=== PATIENT | male | born 1945 | race Caucasian/White ===

== ENCOUNTER → 2018-09-02 09:58 | Emergency (ER) | payer MEDICARE ==
[~2018-09-02 09:58] MED LIST: Albuterol/Ipratropium NEB.SOL* Albuterol 2.5 MG/Ipratropium 0.5 MG 3 ML INH ONE; DOXYcycline IV* 100 MG in NS 0.9% 250 ML* 250 ML IVPB ONE; Dexamethasone IV* 4 MG/ML 5 ML VIAL (20 MG) IVPB ONE; Iohexol 350* (CONTRAST) 500 ML MDV IV ONE; NS 0.9% 250 ML* 250 ML ONE
--- NOTE | 2018-09-02 10:18 | ED ---
HPI Chest Pain - HPI Summary HPI Summary: This patient is a 73 year old female presenting to [facility] with a chief complaint of right rib pain since this morning. Patient states that he woke up in the middle of the night with sudden rib pain. The pain is described as sharp and stabbing. The pain is rated 2/10 in severity normally, but 10/10 with a cough. Symptoms alleviated by nothing. Patient states that that he has been fighting a bout of the common cold for the past few days and recently came back from [place]. Patient additionally reports sore throat, SOB, cough. Patient denies rhinorrhea. Patient is on 3L NC at home and has a hx of emphysema. - History of Current Complaint Time Seen by Provider: 09/02/18 10:01 Hx Obtained From: Patient Onset/Duration: Started Hours Ago, Still Present Timing: Constant Current Severity: Moderate Pain Intensity: 2 Pain Scale Used: 0-10 Numeric Chest Pain Location: Right Lateral Character: Sharp/Stabbing Aggravating Factor(s): Other: - cough Alleviating Factor(s): Nothing Associated Signs and Symptoms: Positive: Negative - rhinorrhea, Other: - cough, sore throat, SOB - Allergy/Home Medications Allergies/Adverse Reactions: Allergies Allergy/AdvReac Type Severity Reaction Status Date / Time lactose Allergy GI Upset Verified 09/02/18 10:04 morphine Allergy Vomiting Verified 09/02/18 10:04 Home Medications: Home Medications Azithromycin 250 mg pe PO DAILY WITH MEAL 09/02/18 [History Confirmed 09/02/18] predniSONE TAB* [Deltasone 20 MG TAB*] 20 mg PO DAILY WITH MEAL 09/02/18 [ History Confirmed 09/02/18] PMH/Surg Hx/FS Hx/Imm Hx Previously Healthy: No Cardiovascular History: Reports: Hx Hypertension - on meds Denies: Other Cardiovascular Problems/Disorders Respiratory History: Reports: Hx Sleep Apnea - no cpap yet, Other Respiratory Problems/Disorders - emphysema Musculoskeletal History: Reports: Hx Arthritis - left hand and thumb Sensory History: Reports: Hx Cataracts - [place], Hx Contacts or Glasses - [place], Hx Hearing Aid - [place] Opthamlomology History: Reports: Hx Cataracts - [place], Hx Contacts or Glasses - [place] - Surgical History Surgery Procedure, Year, and Place: [place] cataracts, 2009, [facility] [place]. hernia, 30 yrs ago, [facility] [place]. vasectomy, 1970 Hx Anesthesia Reactions: No Infectious Disease History: No Infectious Disease History: Denies: Traveled Outside the US in Last 30 Days - Family History Known Family History: Positive: Hypertension - Social History Alcohol Use: None Hx Substance Use: No Substance Use Type: Reports: None Hx Tobacco Use: Yes Smoking Status (MU): Former Smoker Amount Used/How Often: 25 years 2 packs a day Review of Systems Negative: Fever Positive: Sore Throat. Negative: Nasal Discharge Positive: Shortness Of Breath, Cough Positive: Other - right rib pain All Other Systems Reviewed And Are Negative: Yes Physical Exam - Summary Physical Exam Summary: Constitutional: Well-developed, Well-nourished, Alert. Mild respiratory distress. Skin: Warm, Dry HENT: Normocephalic; Atraumatic Eyes: Conjunctiva normal Neck: Musculoskeletal ROM normal neck. Cardio: Rhythm regular, rate normal, Heart sounds normal; Difficult to hear due to loud breath sounds. Intact distal pulses; The pedal pulses are 2+ and symmetric. Radial pulses are 2+ and symmetric. Pulmonary/Chest wall: Diffuse bilateral wheezing Abd: Soft, Musculoskeletal: Left lower extremity 2+ pitting edema, Right lower extremity 1 + or trace pitting edema Neuro: Alert, Oriented x3 Psych: Mood and affect Normal Triage Information Reviewed: Yes Vital Signs On Initial Exam: Initial Vitals Temp Pulse Resp BP Pulse Ox 97.7 F 94 24 171/88 95 09/02/18 10:04 09/02/18 10:04 09/02/18 10:04 09/02/18 10:04 09/02/18 10:04 Vital Signs Reviewed: Yes Diagnostics - Vital Signs Vital Signs Temp Pulse Resp BP Pulse Ox 09/02/18 10:04 97.7 F 94 24 171/88 95 - Laboratory Result Diagrams: 09/02/18 10:37 09/02/18 10:37 Lab Statement: Any lab studies that have been ordered have been reviewed, and results considered in the medical decision making process. - Radiology CXR Radiology Interpretation Completed By: Radiologist Summary of Radiographic Findings: CXR reveals, per radiologist, IMPRESSION: POSSIBLE SMALL LEFT PLEURAL EFFUSION. ED physician has reviewed this radiology report. - CT CTA Chest/Thorax CT Interpretation Completed By: Radiologist Summary of CT Findings: CTA Chest/Thorax reveals, per radiologist, IMPRESSION: 1. SLIGHTLY LIMITED STUDY, NO EVIDENCE FOR PULMONARY EMBOLISM. 2. FINDINGS SUGGESTIVE OF ACUTE BRONCHITIS IN THE RIGHT LOWER LOBE. 3. EMPHYSEMA. 4. HEPATIC STEATOSIS. ED physician has reviewed this radiology report. - EKG 1017 Cardiac Rate: NL EKG Rhythm: Sinus Rhythm - 84 BPM Summary of EKG Findings: An EKG, taken 1017, reveals NSR (84 BPM), normal OR, normal QRS, normal QTc, Nonspecific ST, Q wave in lead III. - Additional Comments Diagnostic Additional Comments: Venous Doppler Study reveals, per radiologist, IMPRESSION: NO EVIDENCE FOR DEEP VENOUS THROMBOSIS. ED physician has reviewed this radiology report. Re-Evaluation - Re-Evaluation First Eval Re-Evaluation Time: 10:41 Change: Improved Comment: Patient is feeling better. SOB improved. Second Eval Re-Evaluation Time: 12:54 Change: Unchanged Comment: Patient is breathing much more comfortably. However, he is still wheezing and patient notes that he is normally not wheezing at baseline. SOB still present. Will order 2nd breathing treatment. Chest Pain Course/Dx - Course Course Of Treatment: This patient is a 73 year old female presenting to [facility] with a chief complaint of right rib pain since this morning. Patient states that he woke up in the middle of the night with sudden rib pain. The pain is described as sharp and stabbing. The pain is rated 2/10 in severity normally, but 10/10 with a cough. Patient is on 3L NC at home and has a hx of emphasema. PE reveals diffuse bilateral wheezing with pitting edema in bilateral lower extremities, left more than right. An EKG, taken 1017, reveals NSR (84 BPM), normal OR, normal QRS, normal QTc, Nonspecific ST, Q wave in lead III. CXR reveals, per radiologist, IMPRESSION: POSSIBLE SMALL LEFT PLEURAL EFFUSION. ED physician has reviewed this radiology report. Venous Doppler Study reveals, per radiologist, IMPRESSION: NO EVIDENCE FOR DEEP VENOUS THROMBOSIS. ED physician has reviewed this radiology report. CTA Chest/Thorax reveals, per radiologist, IMPRESSION:1. SLIGHTLY LIMITED STUDY, NO EVIDENCE FOR PULMONARY EMBOLISM. 2. FINDINGS SUGGESTIVE OF ACUTE BRONCHITIS IN THE RIGHT LOWER LOBE. 3. EMPHYSEMA. 4. HEPATIC STEATOSIS. ED physician has reviewed this radiology report. Bloodwork Obtained. Re-eval at 1254: Patient is breathing much more comfortably. However, he is still wheezing and patient notes that he is normally not wheezing at baseline. SOB still present. Will order 2nd breathing treatment. In the ED course the patient was given Albuterol 1 nebulizer, Decadron 10mg IVPB, Doxycyclin, Iohexol 83mL IV. The pt is hemodynamically stable, alert and oriented x3. Patient will be discharged with a dx of acute bronchitis, COPD. Patient is advised to follow up with PCP in 3 days. The patient is agreeable with this plan. - Chest Pain Differential Diagnosis/HQI/PQRI: ACS, CHF, Chest Wall, Pulmonary Edema, Pulmonary Embolism, Other: - DVT, COPD, influenza, pneumonia - Diagnoses Provider Diagnoses: COPD (chronic obstructive pulmonary disease), Bronchitis Discharge - Sign-Out/Discharge Documenting (check all that apply): Patient Departure Patient Received Moderate/Deep Sedation with Procedure: No - Discharge Plan Condition: Stable Disposition: HOME Prescriptions: Tramadol 50 MG # 6 TAB PREPAK 50 mg PO Q4HR PRN #15 tab MDD 6 PRN Reason: Pain Patient Education Materials: Acute Bronchitis (ED), COPD (Chronic Obstructive Pulmonary Disease) (ED) Print Language: [place] Referrals: Trace Monique MD [Primary Care Provider] - - Billing Disposition and Condition Condition: STABLE Disposition: Home - Attestation Statements Document Initiated by Jorgeibe: Yes Documenting Scribe: Franchesca Shannon Provider For Whom Mishel is Documenting (Include Credential): Cindy Palomino MD Scribe Attestation: Franchesca Huizar, scribed for Cindy Carson MD on 09/02/18 at 2144. Scribe Documentation Reviewed: Yes Provider Attestation: The documentation as recorded by the Franchesca downs accurately reflects the service I personally performed and the decisions made by me, Cindy Carson MD Status of Scribmegan Document: Viewed
[2018-09-02 10:45] LABS: ABS Basophils 0 10^3/ul (0-0.2); ABS Eosinophils 0.1 10^3/ul (0-0.6); ABS Lymphocytes 0.6 10^3/ul (1.0-4.8); ABS Monocytes 0.5 10^3/ul (0-0.8); ABS Neutrophils 8.7 10^3/ul (1.5-7.7); ABS Nucleated RBC 0 10^3/ul; Eosinophil % 0.9 %; Hematocrit 47 % (36-46); Hemoglobin 15.7 g/dL (14.0-18.0); Lymphocyte % 6.4 %; Mean Corpuscular HGB Conc 33 g/dL (31-36); Mean Corpuscular Hemoglobin 31 pg (27-31); Mean Corpuscular Volume 91 fL (80-94); Mean Platelet Volume 7.8 fL (7.4-10.4); Nucleated Red Blood Cells % 0; Platelet Count 250 10^3/uL (150-450); Red Blood Count 5.15 10^6 /uL (4.18-5.48); Red Cell Distribution Width 15 % (10.5-15)
[2018-09-02 10:51] LABS: INR 0.91 (0.77-1.02)
[2018-09-02 11:05] LABS: Albumin 4.3 g/dL (3.2-5.2); Albumin/Globulin Ratio 1.3 (1-3); BUN/Creatinine Ratio 13.2 (8-20); Calcium 9.6 mg/dL (8.6-10.3); EGFR African American 82.4 (>60); EGFR Non-African American 68.1 (>60); Globulin 3.3 g/dL (2-4); Total Bilirubin 0.4 mg/dL (0.2-1.0); Total Protein 7.6 g/dL (6.4-8.9)
[2018-09-02 13:48] LABS: Influenza A Molecular NEGATIVE (Negative); Influenza B Molecular NEGATIVE (Negative)
[2018-09-02 18:25] VITALS: BP 116/61
== END | disposition home or self-care (01) ==
LOC: ED 09:58
DX: J44.9 Chronic obstructive pulmonary disease, unspecified (principal); K76.0 Fatty (change of) liver, not elsewhere classified; I10 Essential (primary) hypertension; G47.30 Sleep apnea, unspecified; Z88.5 Allergy status to narcotic agent; Z79.899 Other long term (current) drug therapy; Z87.891 Personal history of nicotine dependence
CPT/HCPCS: 36415; 71045; 71275; 80053; 82803; 83605; 83880; 84484; 85025; 85610; 87040; 93005; 96365; 96366; 96375; 99284; A9270-GY; J1100; Q9967

== ENCOUNTER 2018-10-21 09:29 | Inpatient (IN) | payer MEDICARE ==
[2018-10-21] MEDS ORDERED: NS 0.9% 1000 ML** 1,000 ML IV ONE (09:44)
[2018-10-21] MEDS ORDERED: methylPREDNISolone 125 MG* 2 ML VIAL IV ONE (09:44)
--- NOTE | 2018-10-21 09:44 | ED ---
Shortness of Breath - HPI Summary HPI Summary: This pt is a 73 y/o male presenting to [facility] c/o worsening SOB. Pt reports he is SOB on minimal exertion. He states he will get SOB just by ambulating to the bathroom. Pt notes he has a cough that is nonproductive but he feels like he has phlegm and does not have the strength to bring it up. Denies chest pain, fever. PMHx significant for COPD, emphysema. He uses 3L of oxygen at home at baseline. - History of Current Complaint Chief Complaint: EDShortnessOfBreath Time Seen by Provider: 10/21/18 09:41 Hx Obtained From: Patient Onset/Duration: Gradual Onset, Lasting Days, Still Present Timing: Constant Current Severity: Moderate Dyspnea At: Rest Aggrevating Factors: Movement Alleviating Factors: Nothing Associated Signs & Symptoms: Cough (Nonproductive) - Allergy/Home Medications Allergies/Adverse Reactions: Allergies Allergy/AdvReac Type Severity Reaction Status Date / Time lactose Allergy GI Upset Verified 10/21/18 10:29 morphine Allergy Vomiting Verified 10/21/18 10:29 Home Medications: Home Medications Tiotropium Brom/Olodaterol(NF) [Stiolto Respimat Inh [place] (60 puff)(NF)] 1 puff INH BID 10/21/18 [History Confirmed 10/21/18] PMH/Surg Hx/FS Hx/Imm Hx Endocrine/Hematology History: Denies: Hx Diabetes Cardiovascular History: Reports: Hx Hypertension - on meds Denies: Other Cardiovascular Problems/Disorders Respiratory History: Reports: Hx Chronic Obstructive Pulmonary Disease (COPD) - Emphysema+ Home O2, Hx Sleep Apnea - no cpap yet, Other Respiratory Problems/ Disorders - emphysema Denies: Hx Asthma History: Denies: Hx Renal Disease Musculoskeletal History: Reports: Hx Arthritis - left hand and thumb Sensory History: Reports: [place] - [place], Hx Contacts or Glasses - [place], Hx Hearing Aid - [place] Opthamlomology History: Reports: H[place] Cataracts - [place], Hx Contacts or Glasses - [place] - Surgical History Surgery Procedure, Year, and Place: [place] cataracts, 2009, [facility] [place]. hernia, 30 yrs ago, [facility] [place]. vasectomy, 1970 Hx Anesthesia Reactions: No Infectious Disease History: No Infectious Disease History: Denies: Traveled Outside the US in Last 30 Days - Family History Known Family History: Positive: Hypertension - Social History Alcohol Use: None Hx Substance Use: No Substance Use Type: Reports: None Hx Tobacco Use: Yes Smoking Status (MU): Former Smoker Amount Used/How Often: 25 years 2 packs a day Review of Systems Negative: Fever Negative: Chest Pain Positive: Shortness Of Breath, Cough All Other Systems Reviewed And Are Negative: Yes Physical Exam - Summary Physical Exam Summary: VITAL SIGNS: Reviewed. GENERAL: Patient is a well-developed and nourished male who is lying comfortable in the stretcher. Patient is not in any acute respiratory distress. HEAD AND FACE: No signs of trauma. No ecchymosis, hematomas or skull depressions. No sinus tenderness. EYES: PERRLA, EOMI x 2, No injected conjunctiva, no nystagmus. EARS: Hearing grossly intact. Ear canals and tympanic membranes are within normal limits. MOUTH: Oropharynx within normal limits. NECK: Supple, trachea is midline, no adenopathy, no JVD, no carotid bruit, no c- spine tenderness, neck with full ROM. CHEST: Symmetric, no tenderness at palpation LUNGS: Decreased breath sounds bilaterally. CVS: Regular rate and rhythm, S1 and S2 present, no murmurs or gallops appreciated. ABDOMEN: Soft, non-tender. No signs of distention. No rebound no guarding, and no masses palpated. Bowel sounds are normal. EXTREMITIES: FROM in all major joints, no edema, no cyanosis or clubbing. NEURO: Alert and oriented x 3. No acute neurological deficits. Speech is normal and follows commands. SKIN: Dry and warm Triage Information Reviewed: Yes Vital Signs On Initial Exam: Initial Vitals Temp Pulse Resp BP Pulse Ox 98.6 F 105 22 154/69 91 10/21/18 09:30 10/21/18 09:30 10/21/18 09:30 10/21/18 09:30 10/21/18 09:30 Vital Signs Reviewed: Yes Diagnostics - Vital Signs Vital Signs Temp Pulse Resp BP Pulse Ox 10/21/18 09:30 98.6 F 105 22 154/69 91 - Laboratory Result Diagrams: 10/21/18 10:06 10/21/18 10:06 Lab Statement: Any lab studies that have been ordered have been reviewed, and results considered in the medical decision making process. - Radiology Chest XR Radiology Interpretation Completed By: Radiologist Summary of Radiographic Findings: IMPRESSION: In the correct clinical setting chest x-ray findings could be associated with a mild degree of pulmonary edema and/or atelectasis of the lower lungs. Dr. Ackerman has reviewed this report. - EKG 10:20 Cardiac Rate: NL - at 95 bpm EKG Rhythm: Sinus Rhythm EKG Comparison: No Significant Change - similar to prior EKG on 09/02/18. Summary of EKG Findings: No ST elevations. Q wave in lead III. Course/Dx - Course Assessment/Plan: This pt is a 73 y/o male presenting to [facility] c/o worsening SOB. Pt reports he is SOB on minimal exertion. He states he will get SOB just by ambulating to the bathroom. Pt notes he has a cough that is non productive but he feels like he has phlegm and does not have the strength to bring it up. Denies chest pain, fever. PMHx significant for COPD, emphysema. He uses 3L of oxygen at home at baseline. Blood work without any significant abnormality except for glucose of 106, and CRP of 18.32. Chest x-ray impression: In the correct clinical setting chest x-ray findings could be associated with a mild degree of pulmonary edema and/or atelectasis of the lower lungs. ABG shows a pH of 7.39, PCO2 is 40 perform a PO2 is 75 and O2 sat is 97. On ambulation the patient desaturates to about 86-88% even with his normal oxygen of 3 L via nasal cannula. Therefore, I discussed my physical exam, findings and test results with Dr. Luna from the hospitalist services and she agrees to admit patient to her services. Patient is hemodynamically stable, alert and oriented x 3. - Diagnoses Provider Diagnoses: COPD exacerbation - Physician Notifications Discussed Care of Patient With: Elmira Luna - hospitalist Time Discussed With Above Provider: 12:32 Instructed by Provider To: Admit As Inpatient Discharge - Sign-Out/Discharge Documenting (check all that apply): Patient Departure - Admit to [facility] Patient Received Moderate/Deep Sedation with Procedure: No - Discharge Plan Condition: Stable Disposition: ADMITTED TO [facility] - Billing Disposition and Condition Condition: STABLE Disposition: Admitted to [facility] - Attestation Statements Document Initiated by Scribe: Yes Documenting Scribe: Dalila Pena Provider For Whom Scribe is Documenting (Include Credential): Jewel Ackerman MD Scribe Attestation: I, Dalila Pena, scribed for Jewel Ackerman MD on 10/22/18 at 1828. Scribe Documentation Reviewed: Yes Provider Attestation: The documentation as recorded by the scribe, Dalila Pena accurately reflects the service I personally performed and the decisions made by me, Jewel Ackerman MD Status of Scribe Document: Viewed
[2018-10-21] MEDS: Albuterol/Ipratropium NEB.SOL* Albuterol 2.5 MG/Ipratropium 0.5 MG 3 ML INH SCH ×3 (10:12→10:42)
[2018-10-21 10:26] LABS: ABS Eosinophils 0.4 10^3/ul (0-0.6); ABS Lymphocytes 0.8 10^3/ul (1.0-4.8); ABS Monocytes 0.7 10^3/ul (0-0.8); ABS Neutrophils 7.8 10^3/ul (1.5-7.7); Eosinophil % 4.2 %; Hematocrit 44 % (42-52); Hemoglobin 14.8 g/dL (14.0-18.0); Mean Corpuscular HGB Conc 33 g/dL (31-36); Mean Corpuscular Hemoglobin 31 pg (27-31); Mean Corpuscular Volume 92 fL (80-94); Mean Platelet Volume 7.5 fL (7.4-10.4); Platelet Count 243 10^3/uL (150-450); Red Blood Count 4.84 10^6 /uL (4.18-5.48); Red Cell Distribution Width 15 % (10.5-15); White Blood Count 9.7 10^3/uL (3.5-10.8)
[2018-10-21 10:29] LABS: Activated Partial Thrombo Time 36.3 seconds (26.0-38.0); INR 1.09 (0.82-1.09)
[2018-10-21 10:43] LABS: Albumin 4.1 g/dL (3.2-5.2); Albumin/Globulin Ratio 1.3 (1-3); BUN/Creatinine Ratio 10.5 (8-20); C Reactive Protein 18.32 mg/L (<8.01); Calcium 9.2 mg/dL (8.6-10.3); EGFR African American 83.3 (>60); EGFR Non-African American 68.9 (>60); Globulin 3.1 g/dL (2-4); Potassium 3.8 mmol/L (3.5-5.0); Total Bilirubin 0.5 mg/dL (0.2-1.0); Total Protein 7.2 g/dL (6.4-8.9)
[2018-10-21 10:47] LABS: CKMB ng/mL 3.7 ng/mL (0.6-6.3)
[2018-10-21] MEDS ORDERED: Acetaminophen TAB* 325 MG PO PRN (14:16)
[2018-10-21] MEDS ORDERED: Albuterol HFA INHALER* 8 gm MDI INH PRN (14:19)
[2018-10-21] MEDS ORDERED: Benzonatate CAP* 100 MG PO PRN (14:25)
[2018-10-21] MEDS ORDERED: Melatonin 3 MG TAB PO PRN (14:25)
[2018-10-21] MEDS: Enoxaparin(*) 40 MG/0.4 ML SYR SUBCUT SCH (15:00)
[2018-10-21] MEDS: Azithromycin 500 mg/250 ml NS 500 MG/250 ML BAG IVPB SCH (15:00)
--- NOTE | 2018-10-21 17:21 | HP ---
CC: Dr. Monique * HISTORY AND PHYSICAL: DATE OF ADMISSION: 10/21/18 PROVIDER: Jazmín Sanabria NP. PRIMARY CARE PROVIDER: Dr. Monique. ATTENDING PHYSICIAN WHILE IN THE HOSPITAL: Dr. Elmira Forbes * (dictated by Jazmín Sanabria NP). CHIEF COMPLAINT: Cough, shortness of breath. HISTORY OF PRESENT ILLNESS: Mr. Esteban is a 73-year-old male with a past medical history significant for COPD, GERD, history of gout, hypertension, hyperlipidemia, insomnia, obstructive sleep apnea, who initially presented to his primary care office today with cough and shortness of breath. He was seen and evaluated by his primary care and recommended to come to the emergency room due to his progressively worsening shortness of breath and increased cough. The patient reports that he had bronchitis in August , at that time he was placed on prednisone and azithromycin. He reports that he continues to have the cough and feels short of breath. He reports that the shortness of breath has become progressively worse over the past 2 months to the point that it is difficult for him to participate in his daily activities. He does report that he develops excessive coughing to the point it is hard for him to breathe. He stated that he had an appointment with asset management coordinator in August. He had to cancel the appointment as he was too sick to make the appointment with bronchitis. He reports that his coughing spells are becoming more severe and the shortness of breath is becoming more severe. He reports that at home, his walking O2 saturation does drop into the 80s and feels that has been occurring for sometime now. He does report he chronically wears a 3 L nasal cannula at home. He was placed on oxygen in April of last year when he was in [place] due to his shortness of breath. While in the emergency room, the patient had routine lab work drawn, which was essentially within normal limits. The patient is afebrile. He did have a walking O2 saturation on 3 L in the emergency room, his O2 saturation dropped to 82% and he was significantly short of breath. Due to these findings, we were asked to see and evaluate him for admission. PAST MEDICAL HISTORY: Significant for: 1. COPD. 2. Hypertension. 3. Hyperlipidemia. 4. Obstructive sleep apnea, wears CPAP at night. 5. History of gout. 6. GERD. 7. Insomnia. PAST SURGICAL HISTORY: Umbilical hernia repair. HOME MEDICATIONS: Include: 1. Albuterol HFA 108 two puffs every 4 hours as needed for shortness of breath. 2. Allopurinol 300 mg p.o. daily. 3. Amlodipine 1 tablet p.o. daily. 4. Aspirin 81 mg p.o. daily. 5. Omeprazole 20 mg p.o. daily. 6. Simvastatin 20 mg p.o. daily. 7. Stiolto 2.5 -2.5 two puffs inhaled daily. ALLERGIES: COLCHICINE, DAIRY and MORPHINE. SOCIAL HISTORY: The patient reports he quit smoking 25 to 30 years ago. Prior to that, he smoked 2 packs a day for approximately 30 years. Denies any alcohol or illicit drug use. He is . He lives with his . Surrogate decision maker in the event he is unable to make his own decisions is his . He is a full code. REVIEW OF SYSTEMS: He denies an fever or unintended weight loss. Denies any weight gain. Denies any chest pain or edema. He does report progressively worsening cough and shortness of breath. He reports the cough is nonproductive. He denies any nausea, vomiting, diarrhea, or abdominal pain, hematuria, dysuria. Denies any focal weakness or sensory loss. Denies any visual complaints, dysphagia, arthralgias, myalgias, rashes, lesions or open sores. Denies any psychosis or anxiety. PHYSICAL EXAMINATION GENERAL: At this time, Mr. Esteban is a 73-year-old male. He is alert and oriented, resting on the stretcher in the emergency room. He appears well developed, well nourished. He is in no acute distress at this time. VITAL SIGNS: Blood pressure 140/66, heart rate 108, respirations are 27, O2 saturations 92%, temperature was 98.6. HEENT: Head is atraumatic, normocephalic. Eyes: EOMS are intact. Sclerae anicteric and not pale. Oral mucosa appeared to be moist. NECK: Supple. LUNGS: Diminished throughout bilaterally with a few scattered expiratory wheezes. ABDOMEN: Obese, soft and nontender. Bowel sounds are present x4. EXTREMITIES: He is able to move all 4 extremities. There is no clubbing or cyanosis. Radial pulses are +2. Pedal pulses are +2. He does have mild 1+ pitting edema to lower extremities. SKIN: Intact. NEUROLOGIC: He is awake, alert, and oriented x3. Speech is clear. Thought process intact. There is no gross focal deficits. DIAGNOSTIC STUDIES/LAB DATA: WBCs are 9.7, RBCs 4.84, hemoglobin 14.8, hematocrit is 44, platelet count is 243. INR is 1.09. ABG; pH was 7.39, pCO2 was 40, pO2 was 75, HCO3 is 24.3, O2 saturation was 97% on 4 L. Sodium 140, potassium 3.8, chloride 107, carbon dioxide is 28, anion gap is 5, BUN was 11, creatinine 1.005, glucose is 106, lactic acid 1.5. ASTs were 20, ALTs were 18, alkaline phosphatase was 82. CK was 3.7. Troponin was 0.00. C-reactive protein was 18.32. BNP was 24. He had a chest x-ray, radiologist's impression: In the correct clinical setting , the findings could be associated with mild degree of pulmonary edema and/or atelectasis in the lower lungs. He had an electrocardiogram which showed sinus rhythm at a rate of 95. ASSESSMENT AND PLAN: Mr. Esteban is a 73-year-old male with past medical history significant for chronic obstructive pulmonary disease, hypertension, hyperlipidemia, obstructive sleep apnea, history of gout, and gastroesophageal reflux disease who presented with progressively worsening shortness of breath and cough. 1. He will be admitted under observation for acute on chronic hypoxic respiratory failure. The patient is chronically on 3L nasal cannula. He desats with ambulation to 82%. I will place him on albuterol and Atrovent nebulizers q. 4 hours as needed for shortness of breath and wheezing. We will continue his home inhalers as previously prescribed. He did receive Solu-Medrol 125 mg in the emergency room. I will continue him on prednisone 40 mg p.o. daily. I will add azithromycin 500 mg IV. I will add Mucinex and Tessalon Perles as needed for the cough. 2. Hypertension. He will continue on his amlodipine as previously prescribed. 3. Hyperlipidemia. He will continue on simvastatin as previously prescribed. 4. Obstructive sleep apnea. The patient is on CPAP. He will continue his CPAP during this hospitalization. 5. Gastroesophageal reflux disease. He will continue on omeprazole as previously prescribed. 6. History of gout. The patient will continue on allopurinol 300 mg p.o. daily. 7. DVT prophylaxis. He will be placed on Lovenox subcu. 8. Code status: He is a full code. 9. Fluid, electrolytes and nutrition: He can have a heart healthy, caffeine okay diet. TIME SPENT: Time spent on this admission was approximately 60 minutes, greater than half that time was spent at the bedside, reviewing events leading thus far to his hospitalization, performing physical exam, and reviewing my plan of care. I have discussed this with my attending Dr. Elmira Forbes; she is in agreement with my plan. JAZMÍN SANABRIA, THAIS [id number]/[facility] #: [id number] LUCAS
[2018-10-21] MEDS ORDERED: Atorvastatin* 10 MG TAB PO SCH (18:00)
[2018-10-21] MEDS: TIOTROPIUM INH SCH (19:32)
[2018-10-21] MEDS: OLODATEROL INH SCH (19:32)
[2018-10-21] MEDS: Albuterol/Ipratropium NEB.SOL* Albuterol 2.5 MG/Ipratropium 0.5 MG 3 ML INH PRN (19:38)
[2018-10-21] MEDS: guaiFENesin ER TAB 600 MG PO SCH (21:23)
[2018-10-22 00:01] LABS: Urine Appearance Clear; Urine Bilirubin Negative (Negative); Urine Blood Negative (Negative); Urine Color Yellow; Urine Glucose Negative (Negative); Urine Ketones Trace (Negative); Urine Nitrite Negative (Negative); Urine Protein Negative (Negative); Urine Urobilinogen Negative (Negative)
[2018-10-22] MEDS: Albuterol/Ipratropium NEB.SOL* Albuterol 2.5 MG/Ipratropium 0.5 MG 3 ML INH PRN ×3 (00:48→19:39)
[2018-10-22] MEDS ORDERED: Furosemide IV* 10 MG/ML VIAL (40 MG) IV ONE ×2 (00:48→16:02)
[2018-10-22] MEDS: OLODATEROL INH SCH ×2 (08:37→19:42)
[2018-10-22] MEDS: TIOTROPIUM INH SCH ×2 (08:37→19:42)
[2018-10-22] MEDS: amLODIPine TAB* 5 MG PO SCH (08:46)
[2018-10-22] MEDS: guaiFENesin ER TAB 600 MG PO SCH ×2 (08:47→21:35)
[2018-10-22] MEDS: Allopurinol TAB* 300 MG PO SCH (08:47)
[2018-10-22] MEDS: Pantoprazole TAB * 40 MG TAB PO SCH (08:48)
[2018-10-22] MEDS: Aspirin EC TAB* 81 MG TAB.EC PO SCH (08:48)
[2018-10-22] MEDS ORDERED: predniSONE TAB* 20 MG PO SCH (09:00)
--- NOTE | 2018-10-22 14:02 | ECHO ---
*[facility]* [place] [address] Fax #: [phone] Transthoracic Echocardiogram Patient: Carlito, Height: 67 in / Guy L 170.2 cm : 1945 Weight: 241.5 lb / Study Date: 10/22/2018 109.8 kg Age: 73 BP: 156 / 67 Gender: M BMI/BSA: 37.9 kg/m^2 HR: 98 bpm / 2.19 m^2 *Electron Beam Welder: * Bisi Newberry [facility] *Referring Physician: * Jazmín Sanabria *Reading Physician: * Chandler Art MD Indications: SOB. History: Chronic obstructive pulmonary disease. Functional status: Following treatment plan for sleep apnea. Risk factors: Hypertension. Hyperlipidemia. Conclusions Summary: 1. Left ventricle: The cavity size is normal. Wall thickness is mildly increased. Systolic function is normal by visual assessment. The estimated ejection fraction is 60-65%. Doppler parameters are consistent with abnormal left ventricular relaxation (grade 1 diastolic dysfunction). 2. Right ventricle: The cavity size is mildly dilated. Wall thickness is mildly increased. Systolic function is low normal. 3. Left atrium: The atrium is mildly dilated. 4. Right atrium: The atrium is moderately dilated. Study data: Transthoracic echocardiogram. Procedure: Transthoracic echocardiography was performed. Complete 2D, spectral Doppler, and color flow Doppler. Location: Bedside. Patient status: Inpatient. Patient room number: 408. No prior study is available for comparison. Rhythm: Normal sinus rhythm with PAC's. Findings Left ventricle: The cavity size is normal. Wall thickness is mildly increased. Systolic function is normal by visual assessment. The estimated ejection fraction is 60-65%. Wall motion is normal; there are no regional wall motion abnormalities. Doppler parameters are consistent with abnormal left ventricular relaxation (grade 1 diastolic dysfunction). Right ventricle: The cavity size is mildly dilated. Wall thickness is mildly increased. The moderator band is in a normal position and normal-sized. Systolic function is low normal. Left atrium: The atrium is mildly dilated. Right atrium: The atrium is moderately dilated. Mitral valve: The leaflets are mildly thickened. There is no evidence of stenosis. There is trace to mild regurgitation. Aortic valve: The valve is trileaflet. The leaflets are mildly thickened. There is no evidence of stenosis. There is no significant regurgitation. Tricuspid valve: The leaflets are normal thickness. There is no evidence of stenosis. There is physiologic regurgitation. Pulmonic valve: Not well visualized. The leaflets are normal thickness. There is no evidence of stenosis. There is trace regurgitation. Aorta: Ascending aorta: The ascending aorta is appears normal. Aortic arch: The aortic arch is appears normal. The aortic root is not dilated. Pericardium: A prominent pericardial fat pad is present. There is no significant pericardial effusion. Pulmonary arteries: Not well visualized. Systolic pressure can not be accurately estimated. Systemic veins: Inferior vena cava: The vessel is normal in size. The respirophasic diameter changes are in the normal range (>= 50%). Measurements Left ventricle Value Ref Right atrium Value Ref CANDELARIO, LAX 4.8 cm 4.2 - 5.8 SI dim, ES (H) 6.1 cm 3.4 - 5.3 ESD, LAX 3.2 cm 2.5 - 4.0 ML dim, ES, A4C (H) 5.1 cm 2.6 - 4.4 FS, LAX 35 % 25 - 43 SI dim, ES, A4C (H) 5.7 cm 3.4 - 5.3 PW, ED, LAX (H) 1.1 cm 0.6 - 1.0 Estimated RAP 3 mm Hg --------- FS 35 % 25 - 43 PW, ED (H) 1.1 cm 0.6 - 1.0 Aortic valve Value Ref E', lat marcelo, TDI (L) 7.6 cm/sec >=10.0 Marcelo diam, ED 2.2 cm --- ------ E/e', lat marcelo, 16 Peak v, S 1.59 m/sec ------ --- TDI VTI, S 26.8 cm --------- E', med marcelo, TDI 8.1 cm/sec >=7.0 Mean grad, S 4.0 mm Hg --- ------ E/e', med marcelo, 15 Peak grad, S 10.0 mm Hg ------ --- TDI LVOT/AV, VTI ratio 0.78 --------- E', avg, TDI 7.9 cm/sec E/e', avg, TDI (H) 15 <=14 Mitral valve Value Ref Peak E 1.18 m/sec --------- LVOT Value Ref Peak A 1.12 m/sec --------- Peak tera, S 1.28 m/sec Decel time 169 ms --------- VTI, S 21.0 cm Peak grad, D 5.6 mm Hg --------- Peak grad, S 7 mm Hg Peak E/A ratio 1.1 --------- Mean grad, S 3 mm Hg Pulmonic valve Value Ref Ventricular septum Value Ref Peak v, S 1.22 m/sec --------- IVS, ED (H) 1.2 cm 0.6 - 1.0 Peak grad, S 6.0 mm Hg --------- Right ventricle Value Ref Aortic root Value Ref AW thickness, ED (H) 0.6 cm 0.1 - 0.5 Root diam 3.3 cm <4.3 CANDELARIO, LAX 3.2 cm CANDELARIO minor ax, (H) 4.8 cm 1.9 - 3.5 Ascending aorta Value Ref A4C mid AAo AP diam, S 3.3 cm --------- Left atrium Value Ref Decending aorta Value Ref AP dim, ES (H) 5.00 cm 3.00 - Shilo peak tera 0.7 m/sec --------- 4.00 ML dim, A4C 4.9 cm Inferior vena cava Value Ref SI dim, A4C 5.7 cm Diam 1.7 cm --------- Vol/bsa, ES, 1-p 32 ml/m^2 12 - 37 A4C Vol/bsa, ES, A/L 30 ml/m^2 16 - 34 Legend: (L) and (H) fabiano values outside specified reference range. Prepared and electronically signed by Chandler Art MD 10/22/2018 14:01
[2018-10-22] MEDS: Azithromycin 500 mg/250 ml NS 500 MG/250 ML BAG IVPB SCH (15:29)
[2018-10-22] MEDS: Enoxaparin(*) 40 MG/0.4 ML SYR SUBCUT SCH (15:29)
--- NOTE | 2018-10-22 15:49 | PN ---
Subjective Date of Service: 10/22/18 Interval History: Patient seen and examined. Currently on his nasal CPAP in his room, at bedside. States he still feels significant;y SOB and wheezy. Denies chest pain, no fever or chills, unable to expectorate. Dry cough. Severe dyspnea with exertion. Objective Active Medications: Acetaminophen (Tylenol Tab*) 650 mg PO Q4H PRN PRN Reason: FEVER/PAIN Albuterol (Ventolin Hfa Inhaler*) 2 puff INH Q4HR PRN PRN Reason: WHEEZING Albuterol/Ipratropium (Duoneb (Albuterol 2.5 Mg/Ipratropium 0.5 Mg)) 1 neb INH [id number] AWAKE PRN PRN Reason: sob/wheexing Last Admin: 10/22/18 09:16 Dose: 1 neb [facility]*) [facility] [place] [facility] Last Admin: 10/22/18 08:47 Dose: 300 mg Amlodipine Besylate ([facility]vasc [facility]*) [facility] [place] Last Admin: 10/22/18 08:46 Dose: 5 mg Aspirin (Aspirin Ec Tab*) 81 mg PO DAILY [facility] Last Admin: 10/22/18 08:48 Dose: 81 mg Atorvastatin Calcium (Lipitor*) 10 mg PO BEDTIME [facility] Benzonatate (Tessalon Cap*) 100 mg PO BID PRN PRN Reason: COUGH Last Admin: 10/22/18 00:45 Dose: 100 mg Enoxaparin Sodium (Lovenox(*)) 40 mg SUBCUT Q24H [facility] Last Admin: 10/22/18 15:29 Dose: 40 mg Guaifenesin (Mucinex*) 600 mg PO BID [facility] Last Admin: 10/22/18 08:47 Dose: 600 mg Azithromycin (Zithromax 500 Mg/250 Ml) 500 mg in 250 mls @ 250 mls/hr IVPB Q24H [facility] Last Admin: 10/22/18 15:29 Dose: 250 mls/hr Melatonin (Melatonin) 3 mg PO BEDTIME PRN PRN Reason: SLEEP Methylprednisolone Sodium Succinate (Solu-Medrol 40 Mg) 40 mg IV Q8H [facility] Pantoprazole Sodium (Protonix Tab*) 40 mg PO QAM [facility] Last Admin: 10/22/18 08:48 Dose: 40 mg Tiotropium [place]/Olodaterol (Stiolto Respimat Inh [place] (60 Puff)(Nf)) 1 puff INH BID [facility] Last Admin: 10/22/18 08:37 Dose: Not Given Vital Signs - 8 hr 10/22/18 10/22/18 09:17 11:23 Temperature 97.7 F Pulse Rate 98 98 Respiratory 16 20 Rate Blood Pressure 133/73 (mmHg) O2 Sat by Pulse 93 98 Oximetry Oxygen Devices in Use Now: Nasal Cannula Appearance: alert, NAD Eyes: No Scleral Icterus, PERRLA Ears/Nose/Mouth/Throat: NL Teeth, Lips, Gums, Mucous Membranes Moist Neck: NL Appearance and Movements; NL JVP, Trachea Midline Respiratory: Symmetrical Chest Expansion and Respiratory Effort, - - bilateral expiratory wheeze with crackles in RLL Cardiovascular: NL Sounds; No Murmurs; No JVD, RRR, No Edema Abdominal: NL Sounds; No Tenderness; No Distention Extremities: No Edema, No Clubbing, Cyanosis Skin: No Rash or Ulcers Neurological: Alert and Oriented x 3, NL Gait Nutrition: Taking PO's - Result Diagrams: 10/21/18 10:06 10/21/18 10:06 Microbiology and Other Data: Microbiology 10/21/18 10:34 Aerobic Blood Culture - Preliminary Blood Venous No Growth Day 1 10/21/18 10:06 Aerobic Blood Culture - Preliminary Blood Venous No Growth Day 1 Anaerobic Blood Culture - Preliminary No Growth Day 1 Diagnostic Imaging: Patient Name: GUY DERAS Medical Record#: [id number] Ordering Physician: Jewel Ackerman MD Acct.#: [id number] : 1945 Age: 73 Sex: M Location: EMERGENCY DEPARTMENT Exam Date: 10/21/18944 ADM Status: REG ER Order Information: CHEST AP OR PORT Accession Number: [id number] CPT: 30964 INDICATION: Shortness of breath. COMPARISON: Chest x-ray dated September 02, 2018 TECHNIQUE: Single AP portable view of the chest was obtained. FINDINGS: Image quality is compromised due to the relative inferiority of a portable chest x-ray. The heart and mediastinum exhibit normal size and contour. The pulmonary vasculature appears mildly engorged and indistinct. There is faint densities at the bilateral lung bases but the costophrenic angles are adequately defined. Visualized bones are normal for the patient's age. IMPRESSION: In the correct clinical setting chest x-ray findings could be associated with a mild degree of pulmonary edema and/or atelectasis of the lower lungs. _*[facility]* [place] [address] Fax #: [phone] Transthoracic Echocardiogram Patient: Carlito, Height: 67 in / Guy L 170.2 cm : 1945 Weight: 241.5 lb / Study Date: 10/22/2018 109.8 kg Age: 73 BP: 156 / 67 Gender: M BMI/BSA: 37.9 kg/m^2 HR: 98 bpm / 2.19 m^2 *Customer Expert: * Bisi Newberry [facility] *Referring Physician: * Jazmín Sanabria *Reading Physician: * Chandler Art MD Indications: SOB. History: Chronic obstructive pulmonary disease. Functional status: Following treatment plan for sleep apnea. Risk factors: Hypertension. Hyperlipidemia. Conclusions Summary: 1. Left ventricle: The cavity size is normal. Wall thickness is mildly increased. Systolic function is normal by visual assessment. The estimated ejection fraction is 60-65%. Doppler parameters are consistent with abnormal left ventricular relaxation (grade 1 diastolic dysfunction). 2. Right ventricle: The cavity size is mildly dilated. Wall thickness is mildly increased. Systolic function is low normal. 3. Left atrium: The atrium is mildly dilated. 4. Right atrium: The atrium is moderately dilated. Assess/Plan/Problems-Billing Assessment: This is a 73 year old male with history of chronic hypoxic respiratory failure on 3L NC continuous, COPD, obesity, YAMILKA on CPAP, HTN that prsented to the ER with complaints of SOB and increased hypoxia. - Patient Problems (1) COPD with exacerbation Code(s): J44.1 - CHRONIC OBSTRUCTIVE PULMONARY DISEASE W (ACUTE) EXACERBATION SNOMED Code(s): 438555506 Comment: - Reports bronchitis in August that never really resolved - Continue azithromycin for antiinflamtory properties, duonebs, inhalers - Change to IV solumedrol, lungs are tight and wheezy today (2) Acute on chronic respiratory failure with hypoxia Code(s): J96.21 - ACUTE AND CHRONIC RESPIRATORY FAILURE WITH HYPOXIA SNOMED Code(s): 71978115 Comment: - 3L NC continuous at home, currently needing 5L - Will wean as tolerated - Goals sats >90% (3) Acute diastolic heart failure Code(s): I50.31 - ACUTE DIASTOLIC (CONGESTIVE) HEART FAILURE SNOMED Code(s): 341222638 Comment: - One dose lasix given last night - CXR with interstitial edema and ECHO with diastolic dysfunction, preserved EF of 60-65% - Will give additional dose lasix now - Strict I&Os, daily weights - Likely etiology is poor pulmonary function, no previous hx of heart failure (4) Hyperlipemia Code(s): E78.5 - HYPERLIPIDEMIA, UNSPECIFIED SNOMED Code(s): 90840700 Comment: - On statin (5) GERD (gastroesophageal reflux disease) Code(s): K21.9 - GASTRO-ESOPHAGEAL REFLUX DISEASE WITHOUT ESOPHAGITIS SNOMED Code(s): 383506465 Comment: - On PPI (6) YAMILKA on CPAP Code(s): G47.33 - OBSTRUCTIVE SLEEP APNEA (ADULT) (PEDIATRIC); Z99.89 - DEPENDENCE ON OTHER ENABLING MACHINES AND DEVICES SNOMED Code(s): 62801348 Comment: - Continue home CPAP (7) DVT prophylaxis Code(s): Z29.9 - ENCOUNTER FOR PROPHYLACTIC MEASURES, UNSPECIFIED SNOMED Code( s): 028516167 Comment: - HSQ Status and Disposition: Inpatient, dispo TBD, 2-3 days IV steroids then home.
[2018-10-22] MEDS: methylPREDNISolone SOD 40 MG* 1 ML VIAL IV SCH ×2 (16:56→23:36)
[2018-10-22] MEDS: Atorvastatin* 10 MG TAB PO SCH (21:34)
[2018-10-23] MEDS: methylPREDNISolone SOD 40 MG* 1 ML VIAL IV SCH ×3 (08:00→22:08)
[2018-10-23] MEDS: amLODIPine TAB* 5 MG PO SCH (08:01)
[2018-10-23] MEDS: Pantoprazole TAB * 40 MG TAB PO SCH (08:01)
[2018-10-23] MEDS: guaiFENesin ER TAB 600 MG PO SCH ×2 (08:02→21:57)
[2018-10-23] MEDS: Allopurinol TAB* 300 MG PO SCH (08:02)
[2018-10-23] MEDS: Aspirin EC TAB* 81 MG TAB.EC PO SCH (08:02)
[2018-10-23] MEDS: TIOTROPIUM INH SCH ×2 (09:14→19:20)
[2018-10-23] MEDS: OLODATEROL INH SCH ×2 (09:14→19:20)
[2018-10-23] MEDS: Albuterol/Ipratropium NEB.SOL* Albuterol 2.5 MG/Ipratropium 0.5 MG 3 ML INH PRN ×2 (09:14→17:18)
[2018-10-23] MEDS: Azithromycin 500 mg/250 ml NS 500 MG/250 ML BAG IVPB SCH (16:35)
[2018-10-23] MEDS: Enoxaparin(*) 40 MG/0.4 ML SYR SUBCUT SCH (19:25)
[2018-10-23] MEDS ORDERED: Furosemide IV* 10 MG/ML VIAL (40 MG) IV ONE (19:39)
--- NOTE | 2018-10-23 19:39 | PN ---
Subjective Date of Service: 10/23/18 Interval History: Patient seen and examined. Off bipap, remains on 5LNC but states he feels his SOB is improved, also feels wheeze is slightly better. Has mostly course unproductive cough. No chills or sweats, no fever, no chest pain. at bedside. Objective Active Medications: Acetaminophen (Tylenol Tab*) 650 mg PO Q4H PRN PRN Reason: FEVER/PAIN Albuterol (Ventolin Hfa Inhaler*) 2 puff INH Q4HR PRN PRN Reason: WHEEZING Albuterol/Ipratropium (Duoneb (Albuterol 2.5 Mg/Ipratropium 0.5 Mg)) 1 neb INH [id number] AWAKE PRN PRN Reason: sob/wheexing Last Admin: 10/23/18 17:18 Dose: 1 neb Allopurinol (Zyloprim Tab*) 300 mg PO QAM [facility] Last Admin: 10/23/18 08:02 Dose: 300 mg Amlodipine Besylate (Norvasc Tab*) 5 mg PO QAM [facility] Last Admin: 10/23/18 08:01 Dose: 5 mg Aspirin (Aspirin Ec Tab*) 81 mg PO DAILY [facility] Last Admin: 10/23/18 08:02 Dose: 81 mg Atorvastatin Calcium (Lipitor*) 10 mg PO BEDTIME [facility] Last Admin: 10/22/18 21:34 Dose: 10 mg Benzonatate (Tessalon Cap*) 100 mg PO BID PRN PRN Reason: COUGH Last Admin: 10/22/18 00:45 Dose: 100 mg Enoxaparin Sodium (Lovenox(*)) 40 mg SUBCUT Q24H [facility] Last Admin: 10/23/18 19:25 Dose: 40 mg Guaifenesin (Mucinex*) 600 mg PO BID [facility] Last Admin: 10/23/18 08:02 Dose: 600 mg Azithromycin (Zithromax 500 Mg/250 Ml) 500 mg in 250 mls @ 250 mls/hr IVPB Q24H [facility] Last Admin: 10/23/18 16:35 Dose: 250 mls/hr Melatonin (Melatonin) 3 mg PO BEDTIME PRN PRN Reason: SLEEP Methylprednisolone Sodium Succinate (Solu-Medrol 40 Mg) 40 mg IV Q8H [facility] Last Admin: 10/23/18 16:36 Dose: 40 mg Pantoprazole Sodium (Protonix Tab*) 40 mg PO QAM [facility] Last Admin: 10/23/18 08:01 Dose: 40 mg Tiotropium [place]/Olodaterol (Stiolto Respimat Inh [place] (60 Puff)(Nf)) 1 puff INH BID [facility] Last Admin: 10/23/18 19:20 Dose: 1 puff Vital Signs - 8 hr 10/23/18 10/23/18 17:18 19:22 Pulse Rate 98 98 Respiratory 18 16 Rate O2 Sat by Pulse 95 96 Oximetry Oxygen Devices in Use Now: Nasal Cannula Appearance: alert, NAD Eyes: No Scleral Icterus, PERRLA Ears/Nose/Mouth/Throat: NL Teeth, Lips, Gums, Mucous Membranes Moist Neck: NL Appearance and Movements; NL JVP, Trachea Midline Respiratory: Symmetrical Chest Expansion and Respiratory Effort, - - poor air entry, crackles at bases improved, wheeze improved Cardiovascular: NL Sounds; No Murmurs; No JVD, RRR, No Edema Abdominal: NL Sounds; No Tenderness; No Distention Extremities: No Edema, No Clubbing, Cyanosis Skin: No Rash or Ulcers Neurological: Alert and Oriented x 3, NL Sensation Nutrition: Taking PO's Result Diagrams: 10/21/18 10:06 10/21/18 10:06 Microbiology and Other Data: Microbiology 10/21/18 10:34 Aerobic Blood Culture - Preliminary Blood Venous No Growth Day 1 10/21/18 10:06 Aerobic Blood Culture - Preliminary Blood Venous No Growth Day 1 Anaerobic Blood Culture - Preliminary No Growth Day 1 Diagnostic Imaging: Patient Name: GUY DERAS Medical Record#: [id number] Ordering Physician: Jewel Ackerman MD Acct.#: [id number] : 1945 Age: 73 Sex: M Location: EMERGENCY DEPARTMENT Exam Date: 10/21/18944 ADM Status: REG ER Order Information: CHEST AP OR PORT Accession Number: [id number] CPT: 90087 INDICATION: Shortness of breath. COMPARISON: Chest x-ray dated September 02, 2018 TECHNIQUE: Single AP portable view of the chest was obtained. FINDINGS: Image quality is compromised due to the relative inferiority of a portable chest x-ray. The heart and mediastinum exhibit normal size and contour. The pulmonary vasculature appears mildly engorged and indistinct. There is faint densities at the bilateral lung bases but the costophrenic angles are adequately defined. Visualized bones are normal for the patient's age. IMPRESSION: In the correct clinical setting chest x-ray findings could be associated with a mild degree of pulmonary edema and/or atelectasis of the lower lungs. _*[facility]* [place] [address] Fax #: [phone] Transthoracic Echocardiogram Patient: Carlito, Height: 67 in / Guy L 170.2 cm : 1945 Weight: 241.5 lb / Study Date: 10/22/2018 109.8 kg Age: 73 BP: 156 / 65 Gender: M BMI/BSA: 37.9 kg/m^2 HR: 98 bpm / 2.19 m^2 *Autism Tutor: * Bisi Newberry [facility] *Referring Physician: * Jazmín Sanabria *Reading Physician: * Chandler Art MD Indications: SOB. History: Chronic obstructive pulmonary disease. Functional status: Following treatment plan for sleep apnea. Risk factors: Hypertension. Hyperlipidemia. Conclusions Summary: 1. Left ventricle: The cavity size is normal. Wall thickness is mildly increased. Systolic function is normal by visual assessment. The estimated ejection fraction is 60-65%. Doppler parameters are consistent with abnormal left ventricular relaxation (grade 1 diastolic dysfunction). 2. Right ventricle: The cavity size is mildly dilated. Wall thickness is mildly increased. Systolic function is low normal. 3. Left atrium: The atrium is mildly dilated. 4. Right atrium: The atrium is moderately dilated. Assess/Plan/Problems-Billing Assessment: This is a 73 year old male with history of chronic hypoxic respiratory failure on 3L NC continuous, COPD, obesity, YAMILKA on CPAP, HTN that prsented to the ER with complaints of SOB and increased hypoxia. - Patient Problems (1) COPD with exacerbation Code(s): J44.1 - CHRONIC OBSTRUCTIVE PULMONARY DISEASE W (ACUTE) EXACERBATION SNOMED Code(s): 092003105 Comment: - Reports bronchitis in August that never really resolved - Continue azithromycin for antiinflamtory properties, duonebs, inhalers - Continue IV solumedrol (2) Acute on chronic respiratory failure with hypoxia Code(s): J96.21 - ACUTE AND CHRONIC RESPIRATORY FAILURE WITH HYPOXIA SNOMED Code(s): 96568555 Comment: - 3L NC continuous at home, still needing 5LNC - Will wean as tolerated - Goals sats >90% (3) Acute diastolic heart failure Code(s): I50.31 - ACUTE DIASTOLIC (CONGESTIVE) HEART FAILURE SNOMED Code(s): 938467171 Comment: - Two doses IV lasix with improvement in respiratory status but remains on higher O2 requirement - CXR with interstitial edema and ECHO with diastolic dysfunction, preserved EF of 60-65% - Likely etiology is poor pulmonary function, no previous hx of chronic heart failure - Will continue one additional dose of IV lasix today follow strict I&Os, daily weights (4) Hyperlipemia Code(s): E78.5 - HYPERLIPIDEMIA, UNSPECIFIED SNOMED Code(s): 52417961 Comment: - On statin (5) GERD (gastroesophageal reflux disease) Code(s): K21.9 - GASTRO-ESOPHAGEAL REFLUX DISEASE WITHOUT ESOPHAGITIS SNOMED Code(s): 480814814 Comment: - On PPI (6) YAMILKA on CPAP Code(s): G47.33 - OBSTRUCTIVE SLEEP APNEA (ADULT) (PEDIATRIC); Z99.89 - DEPENDENCE ON OTHER ENABLING MACHINES AND DEVICES SNOMED Code(s): 50237853 Comment: - Continue home CPAP (7) DVT prophylaxis Code(s): Z29.9 - ENCOUNTER FOR PROPHYLACTIC MEASURES, UNSPECIFIED SNOMED Code( s): 177153642 Comment: - HSQ Status and Disposition: Inpatient, dispo TBD, 2-3 days IV steroids and diuresis then home.
[2018-10-23] MEDS: Atorvastatin* 10 MG TAB PO SCH (21:58)
[2018-10-24] MEDS: Pantoprazole TAB * 40 MG TAB PO SCH (08:17)
[2018-10-24] MEDS: guaiFENesin ER TAB 600 MG PO SCH ×2 (08:17→20:24)
[2018-10-24] MEDS: amLODIPine TAB* 5 MG PO SCH (08:17)
[2018-10-24] MEDS: Aspirin EC TAB* 81 MG TAB.EC PO SCH (08:17)
[2018-10-24] MEDS: methylPREDNISolone SOD 40 MG* 1 ML VIAL IV SCH ×3 (08:17→23:25)
[2018-10-24] MEDS: Allopurinol TAB* 300 MG PO SCH (08:17)
[2018-10-24] MEDS ORDERED: Furosemide IV* 10 MG/ML 2 ML VIAL (20 MG) IV ONE (08:30)
[2018-10-24] MEDS: OLODATEROL INH SCH ×2 (10:08→19:30)
[2018-10-24] MEDS: TIOTROPIUM INH SCH ×2 (10:08→19:30)
[2018-10-24] MEDS: Enoxaparin(*) 40 MG/0.4 ML SYR SUBCUT SCH (16:31)
[2018-10-24] MEDS: Azithromycin 500 mg/250 ml NS 500 MG/250 ML BAG IVPB SCH (16:31)
--- NOTE | 2018-10-24 17:20 | PN ---
Subjective Date of Service: 10/24/18 Interval History: Patient seen and examined. Increased WOB noted, patient states he showered and is more SOB now. WOB improved while patient rested during exam. Remains on O2 5L still but states he does feel improvement in SOB. Denies chest pain, no fevers or chills. Unproductive cough. No further complaints. Objective Active Medications: Acetaminophen (Tylenol Tab*) 650 mg PO Q4H PRN PRN Reason: FEVER/PAIN Albuterol (Ventolin Hfa Inhaler*) 2 puff INH Q4HR PRN PRN Reason: WHEEZING Albuterol/Ipratropium (Duoneb (Albuterol 2.5 Mg/Ipratropium 0.5 Mg)) 1 neb INH [id number] AWAKE PRN PRN Reason: sob/wheexing Last Admin: 10/23/18 17:18 Dose: 1 neb Allopurinol (Zyloprim Tab*) 300 mg PO QAM [facility] Last Admin: 10/24/18 08:17 Dose: 300 mg Amlodipine Besylate (Norvasc Tab*) 5 mg PO QAM [facility] Last Admin: 10/24/18 08:17 Dose: 5 mg Aspirin (Aspirin Ec Tab*) 81 mg PO DAILY [facility] Last Admin: 10/24/18 08:17 Dose: 81 mg Atorvastatin Calcium (Lipitor*) 10 mg PO BEDTIME [facility] Last Admin: 10/23/18 21:58 Dose: 10 mg Benzonatate (Tessalon Cap*) 100 mg PO BID PRN PRN Reason: COUGH Last Admin: 10/22/18 00:45 Dose: 100 mg Enoxaparin Sodium (Lovenox(*)) 40 mg SUBCUT Q24H [facility] Last Admin: 10/24/18 16:31 Dose: 40 mg Guaifenesin (Mucinex*) 600 mg PO BID [facility] Last Admin: 10/24/18 08:17 Dose: 600 mg Azithromycin (Zithromax 500 Mg/250 Ml) 500 mg in 250 mls @ 250 mls/hr IVPB Q24H [facility] Last Admin: 10/24/18 16:31 Dose: 250 mls/hr Melatonin (Melatonin) 3 mg PO BEDTIME PRN PRN Reason: SLEEP Methylprednisolone Sodium Succinate (Solu-Medrol 40 Mg) 40 mg IV Q8H [facility] Last Admin: 10/24/18 16:32 Dose: 40 mg Pantoprazole Sodium (Protonix Tab*) 40 mg PO QAM [facility] Last Admin: 10/24/18 08:17 Dose: 40 mg Tiotropium [place]/Olodaterol (Stiolto Respimat Inh [place] (60 Puff)(Nf)) 1 puff INH BID [facility] Last Admin: 10/24/18 10:08 Dose: 1 puff Vital Signs - 8 hr 10/24/18 10/24/18 10/24/18 10:08 12:22 16:40 Temperature 97.7 F 97.4 F Pulse Rate 92 89 80 Respiratory 18 20 20 Rate Blood Pressure 127/80 128/65 (mmHg) O2 Sat by Pulse 93 94 94 Oximetry Oxygen Devices in Use Now: Nasal Cannula Appearance: alert, NAD Eyes: No Scleral Icterus, PERRLA Ears/Nose/Mouth/Throat: NL Teeth, Lips, Gums, Mucous Membranes Moist Neck: NL Appearance and Movements; NL JVP, Trachea Midline Respiratory: - - tachypneic, bilateral rales with expiratory wheezes Cardiovascular: NL Sounds; No Murmurs; No JVD, RRR Abdominal: NL Sounds; No Tenderness; No Distention Extremities: No Edema, No Clubbing, Cyanosis Skin: No Rash or Ulcers Neurological: Alert and Oriented x 3, NL Sensation, NL Gait Nutrition: Taking PO's Result Diagrams: 10/21/18 10:06 10/21/18 10:06 Microbiology and Other Data: Microbiology 10/21/18 10:34 Aerobic Blood Culture - Preliminary Blood Venous No Growth Day 1 10/21/18 10:06 Aerobic Blood Culture - Preliminary Blood Venous No Growth Day 1 Anaerobic Blood Culture - Preliminary No Growth Day 1 Diagnostic Imaging: Patient Name: GUY DERAS Medical Record#: [id number] Ordering Physician: Jewel Ackerman MD Acct.#: [id number] : 1945 Age: 73 Sex: M Location: EMERGENCY DEPARTMENT Exam Date: 10/21/18944 ADM Status: REG ER Order Information: CHEST AP OR PORT Accession Number: [id number] CPT: 02167 INDICATION: Shortness of breath. COMPARISON: Chest x-ray dated September 02, 2018 TECHNIQUE: Single AP portable view of the chest was obtained. FINDINGS: Image quality is compromised due to the relative inferiority of a portable chest x-ray. The heart and mediastinum exhibit normal size and contour. The pulmonary vasculature appears mildly engorged and indistinct. There is faint densities at the bilateral lung bases but the costophrenic angles are adequately defined. Visualized bones are normal for the patient's age. IMPRESSION: In the correct clinical setting chest x-ray findings could be associated with a mild degree of pulmonary edema and/or atelectasis of the lower lungs. _*[facility]* [place] [address] Fax #: [phone] Transthoracic Echocardiogram Patient: Carlito, Height: 67 in / Guy L 170.2 cm : 1945 Weight: 241.5 lb / Study Date: 10/22/2018 109.8 kg Age: 73 BP: 156 / 67 Gender: M BMI/BSA: 37.9 kg/m^2 HR: 98 bpm / 2.19 m^2 *Orthotic Aide: * Bisi Newberry [facility] *Referring Physician: * Jazmín Sanabria *Reading Physician: * Chandler Art MD Indications: SOB. History: Chronic obstructive pulmonary disease. Functional status: Following treatment plan for sleep apnea. Risk factors: Hypertension. Hyperlipidemia. Conclusions Summary: 1. Left ventricle: The cavity size is normal. Wall thickness is mildly increased. Systolic function is normal by visual assessment. The estimated ejection fraction is 60-65%. Doppler parameters are consistent with abnormal left ventricular relaxation (grade 1 diastolic dysfunction). 2. Right ventricle: The cavity size is mildly dilated. Wall thickness is mildly increased. Systolic function is low normal. 3. Left atrium: The atrium is mildly dilated. 4. Right atrium: The atrium is moderately dilated. Assess/Plan/Problems-Billing Assessment: This is a 73 year old male with history of chronic hypoxic respiratory failure on 3L NC continuous, COPD, obesity, YAMILKA on CPAP, HTN that prsented to the ER with complaints of SOB and increased hypoxia. - Patient Problems (1) COPD with exacerbation Code(s): J44.1 - CHRONIC OBSTRUCTIVE PULMONARY DISEASE W (ACUTE) EXACERBATION SNOMED Code(s): 950427909 Comment: - Reports bronchitis in August that never really resolved - Continue azithromycin for antiinflamtory properties, duonebs, inhalers - Continue IV solumedrol (2) Acute on chronic respiratory failure with hypoxia Code(s): J96.21 - ACUTE AND CHRONIC RESPIRATORY FAILURE WITH HYPOXIA SNOMED Code(s): 58497578 Comment: - 3L NC continuous at home, still needing 5LNC - Will wean as tolerated, trial 4L NC this evening, discussed with RN - Goals sats >90% (3) Acute diastolic heart failure Code(s): I50.31 - ACUTE DIASTOLIC (CONGESTIVE) HEART FAILURE SNOMED Code(s): 508574331 Comment: - CXR with interstitial edema and ECHO with diastolic dysfunction, preserved EF of 60-65% - Likely etiology is poor pulmonary function, no previous hx of chronic heart failure or exacerbations in the past per patient report - Decrease IV lasix to 20mg daily to start tomorrow - strict I&Os, daily weights (4) Hyperlipemia Code(s): E78.5 - HYPERLIPIDEMIA, UNSPECIFIED SNOMED Code(s): 17249715 Comment: - On statin (5) GERD (gastroesophageal reflux disease) Code(s): K21.9 - GASTRO-ESOPHAGEAL REFLUX DISEASE WITHOUT ESOPHAGITIS SNOMED Code(s): 225282265 Comment: - On PPI (6) YAMILKA on CPAP Code(s): G47.33 - OBSTRUCTIVE SLEEP APNEA (ADULT) (PEDIATRIC); Z99.89 - DEPENDENCE ON OTHER ENABLING MACHINES AND DEVICES SNOMED Code(s): 16643924 Comment: - Continue home CPAP (7) DVT prophylaxis Code(s): Z29.9 - ENCOUNTER FOR PROPHYLACTIC MEASURES, UNSPECIFIED SNOMED Code( s): 919908380 Comment: - HSQ Status and Disposition: Inpatient, dispo TBD, 2-3 days IV steroids and diuresis then home.
[2018-10-24] MEDS: Atorvastatin* 10 MG TAB PO SCH (20:23)
[2018-10-25] MEDS: OLODATEROL INH SCH ×2 (08:14→20:45)
[2018-10-25] MEDS: TIOTROPIUM INH SCH ×2 (08:14→20:45)
[2018-10-25] MEDS: methylPREDNISolone SOD 40 MG* 1 ML VIAL IV SCH ×2 (11:05→16:12)
[2018-10-25] MEDS: amLODIPine TAB* 5 MG PO SCH (11:05)
[2018-10-25] MEDS: Pantoprazole TAB * 40 MG TAB PO SCH (11:05)
[2018-10-25] MEDS: guaiFENesin ER TAB 600 MG PO SCH ×2 (11:05→21:16)
[2018-10-25] MEDS: Aspirin EC TAB* 81 MG TAB.EC PO SCH (11:05)
[2018-10-25] MEDS: Allopurinol TAB* 300 MG PO SCH (11:05)
--- NOTE | 2018-10-25 15:24 | PN ---
Subjective Date of Service: 10/25/18 Interval History: Pt continues to have O2 requirements above baseline. He has continued cough since prior to dx of bronchitis on 09/02. He c/o exertional SOB, nonproductive cough, and intermittent wheeze. 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 Objective Active Medications: Acetaminophen (Tylenol Tab*) 650 mg PO Q4H PRN Albuterol (Ventolin Hfa Inhaler*) 2 puff INH Q4HR PRN Albuterol/Ipratropium (Duoneb (Albuterol 2.5 Mg/Ipratropium 0.5 Mg)) 1 neb INH [id number] AWAKE PRN Allopurinol (Zyloprim Tab*) 300 mg PO QAM [facility] Amlodipine Besylate (Norvasc Tab*) 5 mg PO QAM [facility] Aspirin (Aspirin Ec Tab*) 81 mg PO DAILY [facility] Atorvastatin Calcium (Lipitor*) 10 mg PO BEDTIME [facility] Benzonatate (Tessalon Cap*) 100 mg PO BID PRN Enoxaparin Sodium (Lovenox(*)) 40 mg SUBCUT Q24H [facility] Guaifenesin (Mucinex*) 600 mg PO BID [facility] Azithromycin (Zithromax 500 Mg/250 Ml) 500 mg in 250 mls @ 250 mls/hr IVPB Q24H [facility] Melatonin (Melatonin) 3 mg PO BEDTIME PRN Methylprednisolone Sodium Succinate (Solu-Medrol 40 Mg) 40 mg IV Q8H [facility] Pantoprazole Sodium (Protonix Tab*) 40 mg PO QAM [facility] Tiotropium [place]/Olodaterol (Stiolto Respimat Inh [place] (60 Puff)(Nf)) 1 puff INH BID [facility] Vital Signs: Temp Pulse Resp BP Pulse Ox 97.6 F 72 18 137/68 91 10/25/18 07:37 10/25/18 08:14 10/25/18 08:14 10/25/18 07:37 10/25/18 08:14 Oxygen Devices in Use Now: Nasal Cannula Appearance: Pt is sitting at edge of bed. He appears to be in no acute distress , breathing comfortably, able to speak in full sentences. Eyes: No Scleral Icterus, PERRLA Ears/Nose/Mouth/Throat: NL Teeth, Lips, Gums, Mucous Membranes Moist Neck: Trachea Midline Respiratory: Symmetrical Chest Expansion and Respiratory Effort, - - End expiratory wheeze Cardiovascular: NL Sounds; No Murmurs; No JVD, RRR, No Edema Abdominal: NL Sounds; No Tenderness; No Distention, No Hepatosplenomegaly Extremities: No Edema, No Clubbing, Cyanosis Neurological: Alert and Oriented x 3 Result Diagrams: 10/21/18 10:06 10/21/18 10:06 Microbiology and Other Data: Microbiology 10/21/18 10:34 Aerobic Blood Culture - Preliminary Blood Venous No Growth Day 1 10/21/18 10:06 Aerobic Blood Culture - Preliminary Blood Venous No Growth Day 1 Anaerobic Blood Culture - Preliminary No Growth Day 1 Diagnostic Imaging: Patient Name: GUY DERAS Medical Record#: [id number] Ordering Physician: Jewel Ackerman MD Acct.#: [id number] : 1945 Age: 73 Sex: M Location: EMERGENCY DEPARTMENT Exam Date: 10/21/18944 ADM Status: REG ER Order Information: CHEST AP OR PORT Accession Number: [id number] CPT: 73197 INDICATION: Shortness of breath. COMPARISON: Chest x-ray dated September 02, 2018 TECHNIQUE: Single AP portable view of the chest was obtained. FINDINGS: Image quality is compromised due to the relative inferiority of a portable chest x-ray. The heart and mediastinum exhibit normal size and contour. The pulmonary vasculature appears mildly engorged and indistinct. There is faint densities at the bilateral lung bases but the costophrenic angles are adequately defined. Visualized bones are normal for the patient's age. IMPRESSION: In the correct clinical setting chest x-ray findings could be associated with a mild degree of pulmonary edema and/or atelectasis of the lower lungs. _*[facility]* [place] [address] Fax #: [phone] Transthoracic Echocardiogram Patient: Carlito, Height: 67 in / Guy Warner 170.2 cm : 1945 Weight: 241.5 lb / Study Date: 10/22/2018 109.8 kg Age: 73 BP: 156 / 67 Gender: M BMI/BSA: 37.9 kg/m^2 HR: 98 bpm / 2.19 m^2 *Commissioned Security Officer: * Bisi Newberry [facility] *Referring Physician: * Jazmín Sanabria *Reading Physician: * Chandler Art MD Indications: SOB. History: Chronic obstructive pulmonary disease. Functional status: Following treatment plan for sleep apnea. Risk factors: Hypertension. Hyperlipidemia. Conclusions Summary: 1. Left ventricle: The cavity size is normal. Wall thickness is mildly increased. Systolic function is normal by visual assessment. The estimated ejection fraction is 60-65%. Doppler parameters are consistent with abnormal left ventricular relaxation (grade 1 diastolic dysfunction). 2. Right ventricle: The cavity size is mildly dilated. Wall thickness is mildly increased. Systolic function is low normal. 3. Left atrium: The atrium is mildly dilated. 4. Right atrium: The atrium is moderately dilated. Assess/Plan/Problems-Billing Assessment: This is a 73 year old male with history of chronic hypoxic respiratory failure on 3L NC continuous, COPD, obesity, YAMILKA on CPAP, HTN that prsented to the ER with complaints of SOB and increased hypoxia. - Patient Problems (1) COPD with exacerbation Comment: - Reports bronchitis in August that never really resolved - Continue azithromycin for antiinflamtory properties, duonebs, inhalers - Continue IV solumedrol today with transition to PO tomorrow a.m. (2) Acute diastolic heart failure Comment: - CXR with interstitial edema and ECHO with diastolic dysfunction, preserved EF of 60-65% - Likely etiology is poor pulmonary function, no previous hx of chronic heart failure or exacerbations in the past per patient report - Lasix 20 IV tomorrow - strict I&Os, daily weights (3) Acute on chronic respiratory failure with hypoxia Comment: - 3L NC continuous at home, still needing 4LNC - Will wean as tolerated, trial 3L NC this evening - Goals sats >90% (4) GERD (gastroesophageal reflux disease) Comment: - On PPI (5) Hyperlipemia Comment: - On statin (6) YAMILKA on CPAP Comment: - Continue home CPAP (7) DVT prophylaxis Comment: - HSQ Status and Disposition: Inpatient. Likely d/c in a.m.
[2018-10-25] MEDS: Azithromycin 500 mg/250 ml NS 500 MG/250 ML BAG IVPB SCH (16:12)
[2018-10-25] MEDS: Enoxaparin(*) 40 MG/0.4 ML SYR SUBCUT SCH (16:13)
[2018-10-25] MEDS: Albuterol/Ipratropium NEB.SOL* Albuterol 2.5 MG/Ipratropium 0.5 MG 3 ML INH PRN (20:45)
[2018-10-25] MEDS: Atorvastatin* 10 MG TAB PO SCH (21:16)
[2018-10-26] MEDS: amLODIPine TAB* 5 MG PO SCH (07:39)
[2018-10-26] MEDS: Allopurinol TAB* 300 MG PO SCH (07:39)
[2018-10-26] MEDS: Aspirin EC TAB* 81 MG TAB.EC PO SCH (07:40)
[2018-10-26] MEDS: Pantoprazole TAB * 40 MG TAB PO SCH (07:40)
[2018-10-26] MEDS: guaiFENesin ER TAB 600 MG PO SCH (07:40)
[2018-10-26] MEDS: TIOTROPIUM INH SCH (07:46)
[2018-10-26] MEDS: OLODATEROL INH SCH (07:46)
[2018-10-26] MEDS ORDERED: predniSONE TAB* 50 MG PO SCH (09:00)
[2018-10-26] MEDS ORDERED: Furosemide IV* 10 MG/ML 2 ML VIAL (20 MG) IV ONE (09:00)
[2018-10-26 13:41] LABS: Calcium 9.4 mg/dL (8.6-10.3); Potassium 3.5 mmol/L (3.5-5.0)
[2018-10-26 13:46] LABS: EGFR African American 69.4 (>60); EGFR Non-African American 57.4 (>60)
[2018-10-26 14:06] VITALS: BP 153/79
--- NOTE | 2018-10-26 14:33 | DS ---
CC: Dr. Monique; [facility] * DISCHARGE SUMMARY: DATE OF ADMISSION: 10/21/18 DATE OF DISCHARGE: 10/26/18 PRIMARY CARE PROVIDER: Dr. Monique. SALESPERSON [place] [employer]: [facility]. ATTENDING PHYSICIAN: Dr. Cerna * (dictated by HIEN Barger). PRIMARY DIAGNOSES: 1. Wuehg-ko-rurzexn hypoxic respiratory failure. 2. Chronic obstructive pulmonary disease exacerbation. SECONDARY DIAGNOSES: 1. Chronic obstructive pulmonary disease. 2. Hypertension. 3. Hyperlipidemia. 4. Obstructive sleep apnea, CPAP at home. 5. Chronic hypoxic respiratory failure, on 3 L nasal cannula O2 at all times. 6. Gastroesophageal reflux disease. 7. Insomnia. 8. History of gout. DISCHARGE MEDICATIONS: 1. Allopurinol 300 mg p.o. q.a.m. 2. Amlodipine 5 mg p.o. q.a.m. 3. Aspirin 81 mg p.o. daily. 4. Omeprazole 20 mg p.o. q.a.m. 5. Simvastatin 20 mg p.o. q.p.m. 6. Albuterol HFA inhaler 2-puff inhalation q.4 hours p.r.n. for SOB/wheeze. 7. Tiotropium bromide/olodaterol 1 puff inhalation b.i.d. [place] Medications: 1. Benzonatate cap 100 mg p.o. b.i.d. p.r.n. for cough, prescribed 20. 2. Guaifenesin ER tab 600 mg p.o. b.i.d. p.r.n. for cough. 3. Prednisone 10 mg tab, prescribed 45. Instructions: 50 mg p.o. x3 days, 40 mg p.o. x3 days, 30 mg p.o. x3 days, 20 mg p.o. x3 days, 10 mg p.o. x3 days, then discontinue. HISTORY OF PRESENT ILLNESS/HOSPITAL COURSE: Mr. Esteban is a 73-year-old male with a past medical history of COPD, chronic hypoxic respiratory failure requiring 3 L of O2 at all times, hypertension, hyperlipidemia, and obstructive sleep apnea who presented to his primary care provider's office on 10/21/18 with complaints of shortness of breath and cough. It was recommended that he come to the ER. It is important to note that the patient was diagnosed with bronchitis at the beginning of August, for which he received azithromycin and prednisone. Since that time, he has continued to have shortness of breath that has progressively worsened. His ADLs are limited due to this. He has also required an increase in oxygen requirements over the last 2 months. In the emergency department, the patient received a workup. He was admitted due to COPD exacerbation and [id number] hypoxic respiratory failure. His home inhalers were continued. He was started on Solu-Medrol. He was also given azithromycin daily x5 days. Transthoracic echocardiogram was ordered and revealed ejection fraction 60% to 65% with grade 1 diastolic dysfunction. For this, the patient received Lasix throughout his stay. It is noted that the patient was admitted and required approximately 5 L per nasal cannula at the beginning of his stay. He was eventually weaned down to his baseline of 3 L. He denies shortness of breath at rest on 3 L of oxygen. He continues to have some shortness of breath with exertion, although this is improved. While on 3 L of oxygen, the patient's ambulatory sats are . The patient denies chest pain, abdominal pain, nausea, vomiting, diarrhea, or constipation. He denies fevers, but does complain of a nonproductive cough, which has decreased throughout his stay. He denies wheezing. Mr. Esteban is stable for discharge to home. PHYSICAL EXAMINATION: Vital Signs: Temperature 97.3 oral, heart rate 80, respiratory rate 18, oxygen saturation 92% on 3 L, blood pressure 123/74. General: Mr. Esteban is a well-developed, well-nourished obese older white male who is sitting at the edge of his bed. He appears to be in no acute distress. Respiratory status is within normal limits and he is able to maintain a conversation in full sentences without shortness of breath. HEENT: PERRL. EOMI. Nonicteric sclerae. Hearing is grossly intact. Oral mucous membranes are moist. There are no lesions. Cardiovascular: Regular rate and rhythm with S1, S2 present. No murmurs, rubs, clicks, or gallops. There is no JVD. Respiratory: Symmetrical chest expansion without use of accessory muscles. There are faint end-expiratory wheezes at the upper lung field. Good air exchange. No rhonchi or rales. Abdomen: Bowel sounds noted in all quadrants. The abdomen is soft. There is no tenderness to palpation. Extremities: Skin is warm and smooth bilaterally without clubbing, cyanosis, or edema. Radial and pedal pulses are palpable. Neuro: The patient is awake. He is alert and oriented x3. He is able to move all of his extremities. He has a steady gait without impairment. DISCHARGE PLAN: Mr. Esteban will be discharged to home. CONDITION: Fair. ACTIVITY: As tolerated. DIET: Heart healthy. MEDICATIONS: 1. Benzonatate cap 100 mg p.o. b.i.d. p.r.n. for cough, prescribed 20. 2. Prednisone 10 mg taper, 50 mg x3 days, decrease by 10 mg q.3 days. 3. Guaifenesin 600 mg b.i.d. p.r.n. for cough. FOLLOWUP: 1. Follow up with primary care provider in 4 to 7 days. 2. Follow up with third grade teacher at [employer] as soon as possible to establish care. 3. Return to the ER or nearest hospital if you experience any worsening of symptoms, shortness of breath, chest discomfort, dizziness, lightheadedness, loss of consciousness, or any other worrisome signs or symptoms. This is a summarized report of a complex medical history and hospital stay. For further details, please see the entire medical record. TIME SPENT: Approximately 35 minutes were spent on this discharge, greater than half that time was spent with the patient discussing discharge plans and instructions. HIEN OLVERA [id number]/[facility] #: [id number] [facility] HOSPITALLisbeth
[2018-10-26] MEDS: Azithromycin 500 mg/250 ml NS 500 MG/250 ML BAG IVPB SCH (17:45)
[2018-10-26] MEDS: Enoxaparin(*) 40 MG/0.4 ML SYR SUBCUT SCH (17:48)
== END 2018-10-26 16:00 | disposition home or self-care (01) | DRG 189 ==
LOC: ED 09:29 → MED 14:16 → OBSVTOIN 10-22 13:55
PROVIDERS: ADMIT Internal Medicine; ATTEND Internal Medicine
PROC: 5A09357 Assistance with Respiratory Ventilation, Less than 24 Consecutive Hours, Continuous Positive Airway Pressure (ICD-10-PCS; principal; 2018-10-22)
DX: J96.21 Acute and chronic respiratory failure with hypoxia (principal); I50.31 Acute diastolic (congestive) heart failure; J44.1 Chronic obstructive pulmonary disease with (acute) exacerbation; E78.5 Hyperlipidemia, unspecified; G47.33 Obstructive sleep apnea (adult) (pediatric); M19.042 Primary osteoarthritis, left hand; E66.9 Obesity, unspecified; I11.0 Hypertensive heart disease with heart failure; K21.9 Gastro-esophageal reflux disease without esophagitis; G47.00 Insomnia, unspecified; M10.9 Gout, unspecified; Z79.82 Long term (current) use of aspirin; Z88.5 Allergy status to narcotic agent; Z91.011 Allergy to milk products; Z98.42 Cataract extraction status, left eye; Z98.41 Cataract extraction status, right eye; Z98.52 Vasectomy status; Z82.49 Family history of ischemic heart disease and other diseases of the circulatory system; Z87.891 Personal history of nicotine dependence; Z68.35 Body mass index [BMI] 35.0-35.9, adult
CPT/HCPCS: 36415; 71045; 80048; 80053; 81003; 82550; 82553; 82803; 83605; 83880; 84484; 85025; 85610; 85730; 86140; 87040; 93005; 93306; 94640; 99284; A9270-GY; G0378; J0456; J1650; J1940; J2920; J2930; J7512

== ENCOUNTER 2020-10-30 03:14 | Observation (INO) ==
[2020-10-30] MEDS ORDERED: NS 0.9% 1000 ml BAG 1,000 ML IV ONE (03:16)
[2020-10-30] MEDS ORDERED: Ondansetron 4 mg VIAL 2 MG/ML 2 ml VIAL IV ONE (03:17)
[2020-10-30 03:33] LABS: Hematocrit 40 % (42-52); Hemoglobin 13.4 g/dL (14.0-18.0); Mean Corpuscular HGB Conc 33 g/dL (31-36); Mean Corpuscular Hemoglobin 33 pg (27-31); Mean Corpuscular Volume 97 fL (80-94); Mean Platelet Volume 7.3 fL (7.4-10.4); Platelet Count 265 10^3/uL (150-450); Red Blood Count 4.12 10^6 /uL (4.18-5.48); Red Cell Distribution Width 15 % (10-15)
[2020-10-30 03:41] LABS: INR 0.97 (0.82-1.09)
[2020-10-30 03:42] LABS: Activated Partial Thrombo Time 24.7 seconds (26.0-38.0)
[2020-10-30 03:48] LABS: Albumin 4.1 g/dL (3.2-5.2); Albumin/Globulin Ratio 1.6 (1-3); Calcium 8.8 mg/dL (8.6-10.3); EGFR African American 61.5 (>60); EGFR Non-African American 50.8 (>60); Globulin 2.6 g/dL (2-4); HDL Cholesterol 44.4 mg/dL; Potassium 4.2 mmol/L (3.5-5.0); Total Bilirubin 0.4 mg/dL (0.2-1.0); Total Protein 6.7 g/dL (6.4-8.9)
[2020-10-30 03:49] LABS: Troponin I 0.02 ng/mL (<0.03)
[2020-10-30 03:57] LABS: ABS Basophils 0.1 10^3/ul (0-0.2); ABS Eosinophils 0.1 10^3/ul (0-0.6); ABS Lymphocytes 1.3 10^3/ul (1.0-4.8); ABS Monocytes 0.8 10^3/ul (0-0.8); ABS Neutrophils 7.7 10^3/ul (1.5-7.7); Eosinophil % 1.1 %; Lymphocyte % 13.3 %
[2020-10-30] MEDS ORDERED: Iodixanol (CONTRAST) 320 MG/ML 100 ML SDV IV ONE ×2 (04:50→08:24)
[2020-10-30] MEDS ORDERED: Piperacillin/Tazobac ADVAN 3.375 GM in NS 0.9% 100 ml BAG 100 ML IV ONE (04:59)
[2020-10-30 05:21] LABS: C Reactive Protein 3.19 mg/L (<8.01)
[2020-10-30] MEDS ORDERED: Piperacillin/Tazobac 3.375 GM BAG ONE (06:07)
[2020-10-30] MEDS ORDERED: Metoclopramide 5 MG/ML VIAL (10 mg) IV SLOW PU ONE (06:18)
[2020-10-30 09:19] LABS: Urine Appearance Clear; Urine Bilirubin Negative (Negative); Urine Blood Negative (Negative); Urine Color Straw; Urine Glucose Negative (Negative); Urine Ketones Negative (Negative); Urine Nitrite Negative (Negative); Urine Protein Negative (Negative); Urine Specific Gravity 1.027 (1.002-1.030); Urine Urobilinogen Negative (Negative)
[2020-10-30] MEDS ORDERED: Al Hydrox/Mg Hydrox/Simet LIQ 30 ML UDC PO PRN (09:58)
[2020-10-30] MEDS ORDERED: Albuterol/Ipratropium NEB.SOL (2.5/0.5 MG) 3 ML NEB.SOLN INH PRN (10:04)
[2020-10-30 10:32] LABS: Magnesium 2.8 mg/dL (1.9-2.7); Phosphorus 2.9 mg/dL (2.5-5.0)
[2020-10-30 10:51] LABS: TSH Ultra Thyroid Stim Horm 1.37 mcIU/mL (0.34-5.60)
[2020-10-30] MEDS ORDERED: Gadoteridol (CONTRAST) 279.3 MG/ML 10 ML IV ONE (11:33)
[2020-10-30 13:36] LABS: Troponin I 0.31 ng/mL (<0.03)
[2020-10-30] MEDS: Heparin 5000 UNITS/ML 1 mL VIAL SUBCUT SCH ×2 (15:14→20:32)
[2020-10-30] MEDS ORDERED: Cyanocobalamin INJ 1,000 MCG/ML VIAL 1 ML VIAL IM ONE (16:25)
[2020-10-30] MEDS ORDERED: Albuterol HFA INHALER 8 gm MDI INH PRN (17:29)
[2020-10-30 18:08] LABS: Troponin I 0.33 ng/mL (<0.03)
[2020-10-30] MEDS: Albuterol 2.5mg/3 ml (0.083%) NEB.SOLN INH SCH (19:12)
[2020-10-30] MEDS: Albuterol/Ipratropium NEB.SOL (2.5/0.5 MG) 3 ML NEB.SOLN INH SCH (19:16)
[2020-10-31] MEDS: Heparin 5000 UNITS/ML 1 mL VIAL SUBCUT SCH (05:00)
[2020-10-31 05:06] LABS: ABS Basophils 0.1 10^3/ul (0-0.2); ABS Eosinophils 0.1 10^3/ul (0-0.6); ABS Lymphocytes 0.8 10^3/ul (1.0-4.8); ABS Neutrophils 6.2 10^3/ul (1.5-7.7); Eosinophil % 1.2 %; Hematocrit 37 % (42-52); Hemoglobin 12.5 g/dL (14.0-18.0); Lymphocyte % 10.3 %; Mean Corpuscular HGB Conc 34 g/dL (31-36); Mean Corpuscular Hemoglobin 33 pg (27-31); Mean Corpuscular Volume 96 fL (80-94); Platelet Count 217 10^3/uL (150-450); Red Blood Count 3.81 10^6 /uL (4.18-5.48); Red Cell Distribution Width 15 % (10-15); White Blood Count 8.1 10^3/uL (3.5-10.8)
[2020-10-31 05:23] LABS: Anion Gap 6 mmol/L (2-11); Blood Urea Nitrogen 12 mg/dL (6-24); CO2 Carbon Dioxide 23 mmol/L (22-32); Calcium 8.6 mg/dL (8.6-10.3); Chloride 106 mmol/L (101-111); EGFR African American 62.5 (>60); EGFR Non-African American 51.7 (>60); Glucose 99 mg/dL (70-100); Potassium 4.3 mmol/L (3.5-5.0); Sodium 135 mmol/L (135-145)
[2020-10-31] MEDS: Albuterol/Ipratropium NEB.SOL (2.5/0.5 MG) 3 ML NEB.SOLN INH SCH (07:15)
[2020-10-31] MEDS: Albuterol 2.5mg/3 ml (0.083%) NEB.SOLN INH SCH (07:16)
[2020-10-31 07:49] LABS: Troponin I 0.15 ng/mL (<0.03)
[2020-10-31] MEDS ORDERED: Tiotropium Brom/Olodaterol MDI INH SCH (09:00)
[2020-10-31] MEDS ORDERED: Aspirin EC 81 mg TAB.EC (enteric coated) PO SCH (09:00)
[2020-10-31] MEDS ORDERED: Polyethylene Glycol 3350 17 GM PACKET PO SCH (09:00)
[2020-10-31] MEDS ORDERED: Regadenoson 0.4 MG/5 ML SYRINGE ONE (09:46)
[2020-10-31 12:14] VITALS: BP 119/54
== END 2020-10-31 15:21 | disposition home or self-care (01) ==
LOC: MEDTELE 03:14 → ED 03:14 → MEDTELE 17:20
PROVIDERS: ADMIT Internal Medicine; ATTEND Internal Medicine